=== PATIENT | female | born 1940 | race Caucasian/White ===

== ENCOUNTER → 2016-12-03 | Outpatient (CLI) | payer MEDICARE ==
[~2016-12-03] MED LIST: ASPIR-LOW81 MG PO; ATENOLOL25 MG PO; BP MEDS; CHOLESTEROL MED; ERYTHRO333 MG PO; HCTZ 25MG25 MG PO; LEVAQUIN 5500 MG/TAB PO; LOVASTATIN10 MG PO; MED FOR ACID REFLUX; PREDNISONE20 MG PO; PREMARIN0.625 MG PO; PRILOSEC 20MG20 MG PO; VICODIN 5/5001 UDTAB PO
== END ==
LOC: MC.RAD 10:07
DX: Z12.31 Encounter for screening mammogram for malignant neoplasm of breast (principal)

== ENCOUNTER → 2017-04-29 | Outpatient (REF) | LOC: ZLAB.WCH 08:35 | DX: Z01.89 Encounter for other specified special examinations (principal) ==